=== PATIENT | female | born 1975 | race Hispanic/Latino ===

== ENCOUNTER 2023-01-14 16:31 | Emergency (ER) | payer SELFPAY ==
[~2023-01-14] VITALS: Ht 157.5 cm; Wt 63.5 kg
[2023-01-14] MEDS ORDERED: DEXAMETHASONE SOD PHOS 10 MG/1 ML VIAL IM ONE (16:45)
[2023-01-14] MEDS ORDERED: KETOROLAC TROMETHAMINE 60 MG/2 ML VIAL IM ONE (16:45)
[2023-01-14] MEDS ORDERED: METHOCARBAMOL500 MG PO (18:36)
[2023-01-14] MEDS ORDERED: IBUPROFEN600 MG PO (18:37)
[2023-01-14 19:00] VITALS: O2SAT 100
== END 2023-01-14 19:00 | disposition home or self-care (01) ==
LOC: ER 16:42
DX: R51.9 Headache, unspecified (principal); M54.2 Cervicalgia
CPT/HCPCS: 70450; 72125; 99283; J1100; J1885